=== PATIENT | female | born 1955 | race Caucasian/White ===

== ENCOUNTER → 2023-09-10 08:42 | Outpatient (REF) | payer MEDICARE, SELFPAY | LOC: MRI 3T 08:42 | PROVIDERS: ATTENDING PHYSICIAN Orthopaedic Surgery; FAMILY PHYSICIAN Family Medicine | DX: M25.552 Pain in left hip (principal) | CPT/HCPCS: 73721 ==

== ENCOUNTER → 2023-10-23 13:09 | Outpatient (REF) | payer MEDICARE, SELFPAY | LOC: RAD 13:09 | PROVIDERS: ATTENDING PHYSICIAN Family Medicine | DX: D72.819 Decreased white blood cell count, unspecified (principal); R59.0 Localized enlarged lymph nodes; R60.1 Generalized edema | CPT/HCPCS: 74177; Q9967 ==

== ENCOUNTER → 2023-11-05 10:16 | Outpatient (REF) | payer MEDICARE, SELFPAY | LOC: DHCBS MAIN 10:16 | PROVIDERS: ATTENDING PHYSICIAN Internal Medicine Cardiovascular Disease; FAMILY PHYSICIAN Family Medicine | DX: I48.0 Paroxysmal atrial fibrillation (principal) | CPT/HCPCS: 93306 ==

== ENCOUNTER → 2023-11-29 13:49 | Outpatient (REF) | payer MEDICARE, SELFPAY | LOC: RAD 13:49 | PROVIDERS: ATTENDING PHYSICIAN Family Medicine | DX: M85.89 Other specified disorders of bone density and structure, multiple sites (principal); Z13.820 Encounter for screening for osteoporosis | CPT/HCPCS: 77080 ==

== ENCOUNTER 2023-12-17 09:56 | Day surgery (SDC) | payer MEDICARE, SELFPAY | END 2023-12-17 12:07 | disposition home or self-care (01) | LOC: CATH 09:56 | PROVIDERS: ATTENDING PHYSICIAN Internal Medicine Cardiovascular Disease; FAMILY PHYSICIAN Family Medicine | DX: Z09 Encounter for follow-up examination after completed treatment for conditions other than malignant neoplasm (principal); I48.0 Paroxysmal atrial fibrillation; Z79.01 Long term (current) use of anticoagulants; R07.9 Chest pain, unspecified; I10 Essential (primary) hypertension; R94.31 Abnormal electrocardiogram [ECG] [EKG]; I34.0 Nonrheumatic mitral (valve) insufficiency | CPT/HCPCS: 33285; C1764 ==

== ENCOUNTER → 2024-02-27 15:05 | Outpatient (REF) | payer MEDICARE, SELFPAY | LOC: WDC 15:05 | PROVIDERS: ATTENDING PHYSICIAN Family Medicine | DX: Z12.31 Encounter for screening mammogram for malignant neoplasm of breast (principal) | CPT/HCPCS: 77063; 77067 ==

== ENCOUNTER → 2024-03-24 12:22 | Outpatient (REF) | payer MEDICARE, SELFPAY | LOC: RAD 12:22 | PROVIDERS: ATTENDING PHYSICIAN Family Medicine | DX: K76.9 Liver disease, unspecified (principal); R59.0 Localized enlarged lymph nodes | CPT/HCPCS: 74177; Q9967 ==

== ENCOUNTER → 2024-10-24 12:49 | Outpatient (REF) | payer MEDICARE, SELFPAY | LOC: RAD 12:49 | PROVIDERS: ATTENDING PHYSICIAN Family Medicine | DX: D18.03 Hemangioma of intra-abdominal structures (principal); R59.0 Localized enlarged lymph nodes | CPT/HCPCS: 74177; Q9967 ==

== ENCOUNTER 2025-01-29 07:51 | Day surgery (SDC) | payer MEDICARE, SELFPAY ==
[2025-01-19 08:16] VITALS: BMI 25.9
[2025-01-19 08:41] LABS: Hematocrit 39.4 % (37.0-47.0); Hemoglobin 13.7 g/dL (12.0-16.0); Mean Corp Hgb Conc. 34.8 g/dL (33.0-37.0); Mean Corpuscular Volume 90.4 fL (81.0-99.0); Nucleated Red Blood Cells % 0 %; Platelet Count 229 10^3/uL (130-400); Red Cell Dist. Width 12.7 % (11.5-14.5)
[2025-01-19 08:53] LABS: INR 2.14; PT 24.0 Sec (11.4-14.6)
[2025-01-19 09:02] LABS: ALT (SGPT) 21 U/L (0-35); AST (SGOT) 29 U/L (14-36); Albumin 4.4 g/dl (3.5-5.0); Alkaline Phosphatase 68 U/L (38-126); Blood Urea Nitrogen 13 mg/dl (7-17); Calcium 9.7 mg/dl (8.4-10.2); Carbon Dioxide 26 mmol/L (22-30); Chloride 103 mmol/L (98-107); Estimated Creatinine Clearance 65 ml/min; Glucose 97 mg/dl (70-99); Magnesium 2.1 mg/dl (1.6-2.3); Potassium 3.5 mmol/L (3.5-5.1); Sodium 137 mmol/L (135-145); Total Protein 6.9 g/dl (6.3-8.2); eGFR > 60.00
[2025-01-29] VITALS (17 sets, daily range): BP systolic 122–170; BP diastolic 80–111
--- NOTE | 2025-01-29 10:01 | ITS.CL.ABL ---
Ophthalmic Medical Technician - Ablation
Ablation
Procedure Report:
ELECTROPHYSIOLOGIC STUDY AND POSSIBLE ABLATION
DATE: January 29, 2025
Primary Care Provider: Dr. Arlyn Jacobo
INDICATION:
Symptomatic Atrial Fibrillation.
Paroxysmal
HISTORY: See H and P.
Symptomatic AF, poorly controlled with attempted medical therapy.
She has had recurrent atrial fibrillation despite 2 prior ablations. She was ablated using cryo balloon ablation in 2018 then radiofrequency ablation in 2022 targeting recurrence of atrial fibrillation.
HAS-BLED: 1
Age
CHADSVASc: 3
HTN
Age
F Gender
PRESENTING RHYTHM: SR
HISTORY: See H and P.
Symptomatic AF, poorly controlled with attempted medical therapy.
ANTIARRHYTHMIC DRUG: Flecainide 50 mg twice daily
ANTICOAGULATION: Rivaroxaban 20 mg daily
'TIME-OUT': called and confirmed.
SEDATION/ANESTHESIA: provided via the anesthesia department using general anesthesia.
PROCEDURE:
Ultrasound Guidance with real-time visualization of needle insertion and vessel patency performed by nh for femoral venous Vascular Access.
Under real-time US guidance, the needle was advanced with negative pressure into the vein. The needle was seen entering the vessel lumen with a good return of dark red flow, the syringe was removed, non-pulsatile, dark red blood low was noted and
the wire was passed without difficulty, then the needle was removed. US confirmed the wire was in the vein, not going into an artery,
Images were taken and saved for the patient's permanent record. Imaging findings typical femoral venous anatomy. Direct visualization of needle puncture into the femoral vein was observed and recorded.
A decapolar CS catheter was placed within the CS for mapping and pacing.
The intracardiac ultrasound catheter was positioned in the RA for continuous intracardiac ultrasound imaging.
Heparin bolus and infusion to target ACT at 300 -350 seconds was administered. Transseptal puncture was performed. This entailed advancing a sheath with dilator into the superior vena cava and withdrawing both (monitoring intracardiac ultrasound,
fluoroscopy and tip pressure) with the tip oriented toward the atrial septum. The fossa ovalis was engaged (indicated by sudden displacement of the sheath tip as well as tenting of the fossa seen on intracardiac ultrasound).
The [employer] transseptal system was used. Left atrial catheter position was confirmed by echocardiographic imaging and fluoroscopy followed by RF delivery using the Widespace system resulting in successful LA access with pressure monitoring
demonstrating LA pressure waveforms (LA mean pressure 7 mm Hg). The sheath was advanced over the dilator and positioned in the left atrium.
The Whitney Grid multipolar mapping catheter was initially positioned through the transseptal sheath for high density mapping.
Geometry and voltage mapping was performed using the Whitney multipolar grid catheter. Ensite-X was utilized for three-dimensional electroanatomical mapping.
A 3-D map was created using Ensite-X in Voxel mode. A 3-D reconstructed CT image was compared to the 3-D Navex map to assist in anatomic evaluation, mapping and ablation.
The [employer] PFA catheter and system was used for cardiac ablation. Catheter positioning was guided and confirmed using both I.C.E. and fluoroscopy.
Ablation strategy included PVI as well as mapping for extra PV contributors to atrial fibrillation which would also be targeted if present.
High density electroanatomical three-dimensional mapping demonstrated LSPV, LIPV, RSPV, RIPV.
There is reconnection at the left inferior pulmonary vein toward the posterior inferior quadrant
Delivery of pulsed electric field energy via the femoral pulse ablation system we isolated the left inferior pulmonary vein.
After accomplishing pulmonary venous isolation, mapping identified additional areas likely to be extra PV contributors to atrial fibrillation. These areas demonstrated patchy low voltage as well as complex fractionated electrograms. These areas can
be sites for the formation of rotors which can drive and maintain atrial fibrillation. These areas are known to be significant contributors to initiation and perpetuation of atrial fibrillation.
Additional energy applications/additional ablation sets targeted extra PV contributors to atrial fibrillation.
Targets for additional PFA ablation included:
LA posterior wall targeted with pulsed electric field energy isolating the posterior wall of the left atrium
After ablation of the posterior wall, additional targets were addressed:
LA inferior floor
These areas were ablated using pulsed electric field energy eliminating the extra PV contributors to atrial fibrillation.
Post ablation mapping finds entrance and exit block at each of the pulmonary veins (LSPV, LIPV, RSPV, RIPV), the LA posterior wall and at the additional line at the inferior/floor of the LA rendering the sites no longer able to contribute to atrial
fibrillation.
Programmed electrostimulation was then able to induce a slightly irregular atrial tachycardia cycle length between 310 and 340 ms. Tachycardia was sustained but at times would degenerate into atrial fibrillation requiring cardioversion.
Tachycardia was easily reinducible. At times cycle length varied, as fast as 280 ms but with the same activation sequence.
High density electroanatomical mapping for activation mapping as well as pacing for entrainment diagnosed a left atrial macro reentrant flutter utilizing an isthmus of slow conduction outside the right superior pulmonary vein anteriorly. Pulse
electric field energy using the femoral pulse ablation catheter in the flower position was used to target this cord where of tissue. Initial energy applications were performed at the antrum of the right superior pulmonary vein anteriorly. Program
electrical stimulation resulted in slower either sustained self terminating or nonsustained atrial tachycardia with the same activation sequence. Mapping suggested leak of electrical signal closer to the mitral valve had approximately a 10/11
o'clock position at AMY 30 degrees. The decision was then made to extend the ablation line from the right superior pulmonary vein down to the anterior mitral valve annulus. IV pressors were administered to get the systolic blood pressure above 150
mmHg. Then intravenous nitroglycerin at 200 mcg was administered. 1 minute later pulsed electric field energy was delivered closer to the mitral valve annulus. Once again with induction tachycardia could be induced albeit always nonsustained.
Mapping demonstrated a lack of a complete line of block with escape close to the mitral valve annulus. The decision was made to give additional energy closer to the mitral valve annulus to ensure complete line of block. Once again intravenous
pressures were administered followed by IV nitroglycerin and pulsed electric field energy was delivered at the mitral valve annulus. At no point was there any ST segment elevation or hemodynamic compromise. Mapping then demonstrated a full line of
electrical block. Now programmed electrical stimulation failed to induce any arrhythmias.
I.C.E. :
Pre-Ablation Post-Ablation
LVEF: 55% 55%
WMA: None none
Pericardial effusion: None none
COMPLICATIONS:
None
SUMMARY:
- Mapping and ablation to isolate the PVs resulting in electrical isolation of the pulmonary veins
- Additional AF ablation sets X 2 after PVI (LA posterior wall, Inf/floor of the LA posterior wall) resulting in elimination of the targeted extra PV contributors to atrial fibrillation.
- Mapping and ablation of second tachycardia (macro reentrant left atrial flutter)
- 3-D Electroanatomical Mapping
- Intracardiac Ultrasound
- Ultrasound guidance for vascular access
Post ablation, I discussed today's findings and results with the patient's , Daniel.
RECOMMENDATIONS:
- Observe in monitored bed.
- Maintain oral anticoagulation.
- Discontinue flecainide
- Office visit with Laila Lamas NP on May 21, 2025.
Copy to: Dr. Arlyn Jacobo
[2025-01-29 11:09] LABS: ACT-LR - POC 263 Seconds (116-155)
[2025-01-29 11:26] LABS: ACT-LR - POC 306 Seconds (116-155)
[2025-01-29 11:46] LABS: ACT-LR - POC 321 Seconds (116-155)
[2025-01-29 12:12] LABS: ACT-LR - POC 351 Seconds (116-155)
[2025-01-29 12:26] LABS: ACT-LR - POC 380 Seconds (116-155)
[2025-01-29] MEDS: ORETIC 25 MG PO (13:31)
[2025-01-29] MEDS: INDERAL LA 120 MG PO (13:31)
--- NOTE | 2025-01-29 16:24 | W.PN.UPDATE ---
Update Note
Progress Note Update
69 yo WF s/p PVI (same day). She denies cp, sob, had mild visual changes initially but improved with IVF ? anesthesia related, EKG SR 1d AVB, R fem site c/d/i no HT. She will resume Xarelto tonight then slowly move to am over the next few days. She
will stop flecainide and continue inderal. Activity restrictions reviewed. She will f/u Dr. Villa in 3 mo. She is for d/c home after 530p if groin stable.
== END 2025-01-29 17:22 | disposition home or self-care (01) ==
LOC: CATH 07:51
PROVIDERS: ATTENDING PHYSICIAN Internal Medicine Cardiovascular Disease; FAMILY PHYSICIAN Family Medicine
DX: I48.19 Other persistent atrial fibrillation (principal); Z79.01 Long term (current) use of anticoagulants; I10 Essential (primary) hypertension; I48.92 Unspecified atrial flutter; I49.8 Other specified cardiac arrhythmias; I49.1 Atrial premature depolarization; Z79.899 Other long term (current) drug therapy
CPT/HCPCS: 36415; 80053; 83735; 85025; 85347; 85610; 86850; 86900; 86901; 93005; 93655; 93656; 93657; C1730; C1732; C1733; C1766; C1769; C1892; C1894

== ENCOUNTER → 2025-02-28 13:22 | Outpatient (REF) | payer MEDICARE, SELFPAY | LOC: WDC 13:22 | PROVIDERS: ATTENDING PHYSICIAN Family Medicine | DX: Z12.31 Encounter for screening mammogram for malignant neoplasm of breast (principal) | CPT/HCPCS: 77063; 77067 ==

== ENCOUNTER 2025-06-02 08:12 | Inpatient (IN) | payer MEDICARE, SELFPAY ==
[2025-06-02 08:47] VITALS: BMI 26.5
[2025-06-02 08:50] VITALS: BP 131/71
--- NOTE | 2025-06-02 08:50 | W.PN.CARDCBS ---
Addendum entered and electronically signed by Adria Infante DO 06/02/25 11:09:
I saw and examined the patient.
The Babbitter's note was reviewed and I agree with the note.
Comment:
Plan:
Plan for Tikosyn after Flecainide washout. Reviewed with EP.
Pt preferred to stay for monitoring off Flecainide as she has symptomatic AFib hx
Cont Eliquis
Monitor QTc as per protocol.
Original Note:
Today's Communication / Plan
-
Labs pending
Plan for initiation of Tikosyn 500 mcg twice daily on 06/03/2025 after washout of flecainide
Continue anticoagulation with Eliquis 5 mg twice a day
Continue to monitor on telemetry
Continue amlodipine for hypertension
Impression / Plan
-
Please refer to full H&P from 05/28/2025 office visit
PCP: Arlyn Jacobo
Container Finisher: Adrián Matthews
Impression:
Admit for initiation of Tikosyn 06/02/2025
Symptomatic paroxysmal atrial fibrillation
A-fib ablation 09/2018
Redo PVI ablation 10/18/2022
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
Failure of flecainide with several pauses greater than 5 seconds leading to discontinuation of flecainide
Failure of sotalol
Chronic anticoagulation on Xarelto
Implantable Medtronic Linq monitor December 2023
Mitral regurgitation
History of pericarditis
History of toxoplasmosis
Hypertension
Macular degeneration
GERD/hiatal hernia
Migraine headaches
Echo 11/05/2023: 55 to 60% with no regional wall motion abnormality. Normal LV size wall thickness and systolic function. Moderate MR. Severely dilated left atrium. Mild TR with PAP 42 mmHg
Plan:
Patient is a 69-year-old female with longstanding history of symptomatic paroxysmal atrial fibrillation with recurrent atrial fibrillation and atrial tachycardia after having 3 previous ablations. She had previous failure to sotalol. Most recently
she has been on flecainide with reoccurrence of atrial fibrillation. She has also been found to have pauses greater than 5 seconds on loop recorder while on flecainide. Patient now being referred for initiation of Tikosyn.
-Last dose of flecainide 06/01/2025 in evening. Initiate Tikosyn 500 mg twice daily starting 06/03/2025 in a.m.
-EKG prior to initiation of Tikosyn 06/02/2025 sinus bradycardia at 55 bpm, QTc 441 ms
-Patient reports she has been compliant with taking Eliquis and has not missed or skipped any doses in the last 2 to 3 months
-Labs pending.
-Repeat BMP in a.m.
-Will continue on Inderal 80 mg. Dose may need to be discontinued upon initiation of Tikosyn pending heart rate
-Continue to monitor on telemetry
-Continue amlodipine 2.5 mg for hypertension
Progress Note - Container Finisher
Subjective
Date of Service: June 02, 2025
Patient seen and examined. Patient reports overall she is feeling well. She feels like she converted to sinus rhythm on 05/31/2025 and has maintained sinus rhythm since. She reports when she is in atrial fibrillation/atrial tachycardia she is
very symptomatic. She wishes to move forward with initiation of Tikosyn. She has remained on uninterrupted anticoagulation
Physical Exam
Physical Exam
GEN: No distress, awake, Ox3
HEENT: supple, anicteric, mmm
LUNGS: CTA, no wheezes/rales
CV: Reg, bradycardic S1/S2, 1/6 syst murmur, no rub or gallop
ABD: soft, BS+, NT/ND
EXT: No edema, no clubbing or cyanosis
NEURO: Gross non-focal
SKIN: No rash, warm, dry, pink
[2025-06-02 09:00] VITALS: BMI 26.5
[2025-06-02 09:35] VITALS: BP 136/89
[2025-06-02] MEDS: INDERAL LA 80 MG PO (09:36)
[2025-06-02 10:05] LABS: Hematocrit 40.2 % (37.0-47.0); Hemoglobin 13.4 g/dL (12.0-16.0); Mean Corp Hgb Conc. 33.3 g/dL (33.0-37.0); Mean Corpuscular Volume 92.2 fL (81.0-99.0); Platelet Count 209 10^3/uL (130-400); Red Cell Dist. Width 12.8 % (11.5-14.5)
[2025-06-02 10:19] LABS: ALT (SGPT) 26 U/L (0-35); AST (SGOT) 43 U/L (14-36); Albumin 4.1 g/dl (3.5-5.0); Alkaline Phosphatase 70 U/L (38-126); Blood Urea Nitrogen 20 mg/dl (7-17); Calcium 9.5 mg/dl (8.4-10.2); Carbon Dioxide 30 mmol/L (22-30); Chloride 102 mmol/L (98-107); Estimated Creatinine Clearance 67 ml/min; Glucose 87 mg/dl (70-99); Magnesium 2.2 mg/dl (1.6-2.3); Potassium 3.9 mmol/L (3.5-5.1); Sodium 136 mmol/L (135-145); Total Protein 6.3 g/dl (6.3-8.2); eGFR > 60.00
[2025-06-02 11:21] VITALS: BP 150/81
--- NOTE | 2025-06-02 11:21 | CM ---
Chart reviewed. Patient is independent of ADLS, lives with her in a 2 S[address], 1st floor set up, 2 AALIYAH, 0 DME. Patient is being started on Dofetilide. CM to assess cost and availability. Patient will need to go home on a 3 day supply. CM
to follow
--- NOTE | 2025-06-02 12:04 | CM ---
Pricing on Dofetilide through the patient's [facility] [employer] is covered at $14.40. CM to follow up
[2025-06-02 14:56] VITALS: BP 146/86
[2025-06-02 19:40] VITALS: BP 146/95
[2025-06-02] MEDS: REFRESH EYE DROPS (PF) 1 DROPS OPHTH (20:30)
[2025-06-02 22:18] VITALS: BP 143/88
--- NOTE | 2025-06-02 23:24 | PTCARENOTE ---
Received pt at change of shift resting in bed. SB on tele, HR in the 50's. Afib booklet and education given to pt. Updated pt on plan of care. Encouraged pt to call RN w/ any questions/concerns. Call montemayor within reach.
[2025-06-03] VITALS (8 sets, daily range): BP systolic 125–141; BP diastolic 85–99
--- NOTE | 2025-06-03 02:59 | DOWNTIME ---
There was a [employer] Client [employer] Downtime on 06/03/2025 from 0100 to 06/03/2025 at 0255. Downtime documentation of patient's care, including medication administrations, has been reconciled in the electronic record per guidelines. Refer to the
patient's paper chart under the miscellaneous tab to see printed paper medication records and downtime forms.
[2025-06-03 04:17] LABS: Blood Urea Nitrogen 16 mg/dl (7-17); Calcium 9.1 mg/dl (8.4-10.2); Carbon Dioxide 28 mmol/L (22-30); Chloride 105 mmol/L (98-107); Estimated Creatinine Clearance 67 ml/min; Glucose 82 mg/dl (70-99); Potassium 3.8 mmol/L (3.5-5.1); Sodium 136 mmol/L (135-145); eGFR > 60.00
[2025-06-03] MEDS: REFRESH EYE DROPS (PF) 1 DROPS OPHTH ×2 (08:39→20:03)
[2025-06-03] MEDS: OSCAL 500 + D 500 MG PO (08:39)
[2025-06-03] MEDS: INDERAL LA 80 MG PO (08:39)
[2025-06-03] MEDS: THERAGRAN 1 TABLET PO (08:40)
[2025-06-03] MEDS: XARELTO 20 MG PO (08:40)
--- NOTE | 2025-06-03 09:19 | W.CARD.TIKOS ---
Initiate Tikosyn
-
I verify that the patient has not taken any verapamil (Isoptin/Calan), ketoconazole (Nizoral), cimetidine (Tagamet), trimethoprim (Trimpex), trimethoprim/sulfamethoxazole (Bactrim), megesterol (Megace), prochlorperazine (Compazine),
hydrochlorothiazide (HCTZ), dolutegravir (Tivicay) or any Class I or Class III anti-arrhythmic within the last three days
AND
I verify that the patient has not taken amiodarone within the last THREE months, or that the patient's amiodarone plasma concentration is <0.3 mcg/mL.
Creatinine 0.8 mg/dL (0.6-1.0) 06/03/25 03:09
Estimated Creat Clear 67 ml/min 06/03/25 03:09
CrCl 83
Does patient have a Ventricular Conduction Abnormality: No
I have assessed the baseline QTc interval (using QT for heart rate less than 60 bpm) and deemed the patient is appropriate for Dofetilide therapy. I understand that Tikosyn is contraindicated if the QTc is >440msec (500msec in patients with
ventricular conduction abnormalities).
Baseline QTc (in msec): 441
QTc interval is greater than 440msec without conduction abnormality OR greater than 500msec with a conduction abnormality, but acceptable to proceed per Cardiology attending. QTc 441 ms instead of 440
Ordering Physician: Adrián Matthews
--- NOTE | 2025-06-03 09:33 | W.PN.CARDCBS ---
Today's Communication / Plan
-
Start Tikosyn and monitor QT interval
Remains in sinus rhythm
Impression / Plan
-
Please refer to full H&P from 05/28/2025 office visit
PCP: Arlyn Jacobo
Research Nutritionist: Adrián Matthews
Impression:
Admit for initiation of Tikosyn 06/02/2025
Symptomatic paroxysmal atrial fibrillation
A-fib ablation 09/2018
Redo PVI ablation 10/18/2022
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
Failure of flecainide with several pauses greater than 5 seconds leading to discontinuation of flecainide
Failure of sotalol
Chronic anticoagulation on Xarelto
Implantable Medtronic Linq monitor December 2023
Mitral regurgitation
History of pericarditis
History of toxoplasmosis
Hypertension
Macular degeneration
GERD/hiatal hernia
Migraine headaches
Echo 11/05/2023: 55 to 60% with no regional wall motion abnormality. Normal LV size wall thickness and systolic function. Moderate MR. Severely dilated left atrium. Mild TR with PAP 42 mmHg
Plan:
She remains in sinus rhythm
Plan is to start Tikosyn today with 5 doses given which will end on June 05 am
HCTZ has been stopped given interaction with Tikosyn and Norvasc has been added with stable blood pressure
PREADMIT DATA
Patient is a 69-year-old female with longstanding history of symptomatic paroxysmal atrial fibrillation with recurrent atrial fibrillation and atrial tachycardia after having 3 previous ablations. She had previous failure to sotalol. Most recently
she has been on flecainide with reoccurrence of atrial fibrillation. She has also been found to have pauses greater than 5 seconds on loop recorder while on flecainide. Patient now being referred for initiation of Tikosyn.
Progress Note - Research Nutritionist
Subjective
Date of Service: June 03, 2025
No complaints
Objective
Labs:
06/02/25 09:31
06/03/25 03:09
Labs
Hgb 13.4 g/dL (12.0-16.0) 06/02/25 09:31
Hct 40.2 % (37.0-47.0) 06/02/25 09:31
Plt Count 209 10^3/uL (130-400) 06/02/25 09:31
Sodium 136 mmol/L (135-145) 06/03/25 03:09
Potassium 3.8 mmol/L (3.5-5.1) 06/03/25 03:09
BUN 16 mg/dl (7-17) 06/03/25 03:09
Creatinine 0.8 mg/dL (0.6-1.0) 06/03/25 03:09
Glucose 82 mg/dl (70-99) 06/03/25 03:09
Vital Signs and I&O:
Vital Signs
Temp Pulse Resp BP Pulse Ox
97.8 F 57 16 126/85 98
06/03/25 08:06 06/03/25 08:39 06/03/25 08:06 06/03/25 08:39 06/03/25 08:06
Vital Signs
Temp Pulse Resp BP Pulse Ox
97.8 F 57 16 126/85 98
06/03/25 08:06 06/03/25 08:39 06/03/25 08:06 06/03/25 08:39 06/03/25 08:06
Intake & Output
06/01/25 06/02/25 06/03/25 06/04/25
06:59 06:59 06:59 06:59
Intake Total 2420 / 2420
Balance 2420 / 2420
Physical Exam
Physical Exam
General: Well developed, well nourished in NAD.
Neck: Supple, no JVD, HJR, carotids +2 B/L, no bruits bilaterally.
Heart: Non displaced PMI, RRR, no murmurs, No S3, S4, no rubs.
Lungs: Clear to auscultation bilaterally, no wheeze, rhonchi, rubs bilaterally,
normal expiratory phase.
Extremities: No clubbing, cyanosis or edema bilaterally.
Neuro: Grossly nonfocal, awake, alert and oriented x3.
[2025-06-03] MEDS: NORVASC 2.5 MG PO (10:31)
[2025-06-03] MEDS: TIKOSYN 500 MCG PO ×2 (10:33→21:02)
--- NOTE | 2025-06-03 11:19 | CM ---
Chart reviewed. Patient is independent of ADLS, lives with her in a 2 STH, 1-2 AALIYAH, 0 DME. Patient will need follow up with pharmacy at discharge to confirm availability Dofetilide and dosage. Patient will also need 3 day supply at
discharge. CM to follow
--- NOTE | 2025-06-03 19:02 | PTCARENOTE ---
~[id number]: Handoff report received from nightshift RN. Pt Aox4, SB/NSR 50s-60s on tele, SBP 120s, RA satting 99%. Pt does not c/o pain at this time. Independent in room. Tikosyn dose #1 given per order, education provided. All needs met at this
time, call montemayor within reach.
~[id number]: EKG obtained post tikosyn dose per protocol. Patient idependent in the room. All needs met, call montemayor within reach.
~[id number]: No change from previous assessment. VSS. All needs met at this time, call montemayor within reach.
--- NOTE | 2025-06-03 23:22 | PTCARENOTE ---
Received patient at change of shift. SB on the monitor, HR in the 50s. Tikosyn administered, EKG obtained as per protocol. No complaints from pt at this time, call montemayor within reach.
[2025-06-04 03:07] VITALS: BP 129/82
[2025-06-04 04:05] LABS: Blood Urea Nitrogen 14 mg/dl (7-17); Calcium 9.5 mg/dl (8.4-10.2); Carbon Dioxide 25 mmol/L (22-30); Chloride 105 mmol/L (98-107); Estimated Creatinine Clearance 77 ml/min; Glucose 87 mg/dl (70-99); Potassium 3.5 mmol/L (3.5-5.1); Sodium 134 mmol/L (135-145); eGFR > 60.00
[2025-06-04 07:44] VITALS: BP 134/85
[2025-06-04] MEDS: INDERAL LA 80 MG PO (08:09)
[2025-06-04] MEDS: OSCAL 500 + D 500 MG PO (08:09)
[2025-06-04] MEDS: TIKOSYN 500 MCG PO (08:09)
[2025-06-04] MEDS: REFRESH EYE DROPS (PF) 1 DROPS OPHTH ×2 (08:10→19:51)
[2025-06-04] MEDS: XARELTO 20 MG PO (08:10)
[2025-06-04] MEDS: NORVASC 2.5 MG PO (08:10)
[2025-06-04] MEDS: THERAGRAN 1 TABLET PO (08:10)
--- NOTE | 2025-06-04 08:18 | W.PN.CARDCBS ---
Addendum entered and electronically signed by Josee Matthews MD 06/04/25 11:38:
I saw and examined the patient.
The Manager Product Support's note was reviewed and I agree with the note.
Comment: No complaints overnight. Exam by me stable. environmental monitoring technician stable.
On dofetilide load. QT interval mildly increased on current EKG compared to prior EKG. Will confer with electrophysiology to see if patient should be dose reduced.
Potassium has been supplemented.
Continue to follow electrolytes.
Continue to follow EKGs per dofetilide protocol.
Continue to follow blood pressure. Currently stable on treatment.
Original Note:
Today's Communication / Plan
-
QTc prolonged to 510 ms following 3rd dose of Tikosyn 500 mcg every 12 hours, will check with EP about possibly reducing dose to 250 mcg
Patient noted to be hypokalemic and was supplemented with KCl 40 mEq x 1 plus rechecking BMP and magnesium level in the a.m., all ordered by me
Impression / Plan
-
Please refer to full H&P from 05/28/2025 office visit
PCP: Arlyn Jacobo
Melt House Supervisor: Adrián Matthews
Impression:
Admit for initiation of Tikosyn 06/02/2025
Symptomatic paroxysmal atrial fibrillation
A-fib ablation 09/2018
Redo PVI ablation 10/18/2022
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
Failure of flecainide with several pauses greater than 5 seconds leading to discontinuation of flecainide
Failure of sotalol
Chronic anticoagulation on Xarelto
Implantable Medtronic Linq monitor December 2023
Mitral regurgitation
History of pericarditis
History of toxoplasmosis
Hypertension
Macular degeneration
GERD/hiatal hernia
Migraine headaches
Echo 11/05/2023: 55 to 60% with no regional wall motion abnormality. Normal LV size wall thickness and systolic function. Moderate MR. Severely dilated left atrium. Mild TR with PAP 42 mmHg
Plan:
-Patient was directly admitted for Tikosyn loading 06/02/2025. Patient was in sinus bradycardia on admission.
-Patient was still taking her usual dose of flecainide on admission, first missed dose was the morning of 06/02/2025. Following 24-hour washout patient was started on Tikosyn 500 mcg every 12 hours 06/03/2025 AM based on CrCl of 83.
-QTc was stable at 494 ms following 2nd dose of Tikosyn 500 mcg on Sunday night. Patient was given 3rd dose of Tikosyn 500 mcg morning and QTc increased to 510 ms. Will check with EP about possibly reducing dose to 250 mcg every 12
hours
-Patient noted to be hypokalemic with a potassium of 3.5 on my review of labs 06/04/2025. Potassium supplemented with KCl 40 mEq x 1 now, orders placed by me. Recheck potassium plus a magnesium level in the AM. Magnesium level was 2.2 on
06/02/2025.
-Outpatient dose of HCTZ stopped 05/28/2025
-Patient is new to amlodipine 2.5 mg daily this admission and patient is normotensive most of the time following that addition
HPI: Patient is a 69-year-old female with longstanding history of symptomatic paroxysmal atrial fibrillation with recurrent atrial fibrillation and atrial tachycardia after having 3 previous ablations. She had previous failure to sotalol. Most
recently she has been on flecainide with reoccurrence of atrial fibrillation. She has also been found to have pauses greater than 5 seconds on loop recorder while on flecainide. Patient now being referred for initiation of Tikosyn.
Progress Note - Melt House Supervisor
Subjective
Date of Service: June 04, 2025
Patient feels well, denies palpitations
Objective
Labs:
06/02/25 09:31
06/04/25 03:14
Labs
Hgb 13.4 g/dL (12.0-16.0) 06/02/25 09:31
Hct 40.2 % (37.0-47.0) 06/02/25 09:31
Plt Count 209 10^3/uL (130-400) 06/02/25 09:31
Sodium 134 mmol/L (135-145) L 06/04/25 03:14
Potassium 3.5 mmol/L (3.5-5.1) 06/04/25 03:14
BUN 14 mg/dl (7-17) 06/04/25 03:14
Creatinine 0.7 mg/dL (0.6-1.0) 06/04/25 03:14
Glucose 87 mg/dl (70-99) 06/04/25 03:14
Vital Signs and I&O:
Vital Signs
Temp Pulse Resp BP Pulse Ox
97.8 F 49 20 129/82 98
06/04/25 07:45 06/04/25 06:00 06/04/25 07:45 06/04/25 03:07 06/04/25 07:45
Vital Signs
Temp Pulse Resp BP Pulse Ox
97.8 F 49 20 129/82 98
06/04/25 07:45 06/04/25 06:00 06/04/25 07:45 06/04/25 03:07 06/04/25 07:45
Intake & Output
06/02/25 06/03/25 06/04/25 06/05/25
06:59 06:59 06:59 06:59
Intake Total 2420 / 2420 960 / 960
Balance 2420 / 2420 960 / 960
Physical Exam
Physical Exam
GEN: NAD, AAO x 3
LUNGS: RA. No audible wheeze
CV: Sinus bradycardia on telemetry.
[2025-06-04] MEDS: KCL 40 MEQ PO (09:06)
[2025-06-04 11:17] VITALS: BP 126/83
--- NOTE | 2025-06-04 11:31 | CM ---
Chart reviewed. Patent is independent of ADLS, lives with her in a 2 STH, 1st floor set up, 1-2 AALIYAH, 0 DME. Patient will need a 3 day supply of Dofetilide and confirmation of availability at discharge. SHAKIR harrison
[2025-06-04 15:12] VITALS: BP 130/85
--- NOTE | 2025-06-04 18:42 | PTCARENOTE ---
Pt received in bed @ 0700. AAOx3. Denying pain. Pt ambulated in room without difficulty. HR observed 40s - 70s. EKG obtained after Tikosyn resulting QTc > 500. Peggy Can NP, notified. New order to decrease Tikosyn dose to 250mcg @ 20:00.
[2025-06-04 18:47] LABS: Hepatitis C Antibody Negative (Negative)
[2025-06-04 18:53] VITALS: BP 130/77
[2025-06-04] MEDS: TIKOSYN 250 MCG PO (19:51)
[2025-06-04 22:01] VITALS: BP 140/87
--- NOTE | 2025-06-05 01:53 | PTCARENOTE ---
Received pt @ change of shift. AAOx3, VSS-- SB on monitor. Denies any pain. Ambulating the room Discussed next Tikosyn dose and EKG. Pt verbalizes understanding. Call montemayor within reach.
[2025-06-05 03:39] VITALS: BP 113/79
[2025-06-05 04:27] LABS: Blood Urea Nitrogen 11 mg/dl (7-17); Calcium 9.6 mg/dl (8.4-10.2); Carbon Dioxide 28 mmol/L (22-30); Chloride 105 mmol/L (98-107); Estimated Creatinine Clearance 67 ml/min; Glucose 88 mg/dl (70-99); Magnesium 2.2 mg/dl (1.6-2.3); Potassium 4.0 mmol/L (3.5-5.1); Sodium 137 mmol/L (135-145); eGFR > 60.00
[2025-06-05 06:42] VITALS: BP 131/81
--- NOTE | 2025-06-05 08:25 | W.PN.CARDCBS ---
Addendum entered and electronically signed by Josee Matthews MD 06/05/25 12:57:
I saw and examined the patient.
The Package Handler's note was reviewed and I agree with the note.
Comment: Exam is stable. No symptoms noted. Telemetry stable.
Paroxysmal atrial fibrillation With long history as noted.
Chronic anticoagulation.
Patient was admitted for dofetilide load. Dose was decreased during hospital stay.
EKGs with stable QT interval
Telemetry and exam stable
Continue dofetilide 250 mcg twice daily
Continue to follow blood pressure as an outpatient.
Patient stable for discharge.
Original Note:
Today's Communication / Plan
-
Continue Tikosyn 250 mcg Q12H. For 5th dose this AM.
Follow QTc on EKG
If QTc stable, plan is for discharge later today
Follow up w/ repeat BMP next week to reassess K
Cardiology follow up arranged
Impression / Plan
-
Please refer to full H&P from 05/28/2025 office visit
PCP: Arlyn Jacobo
Medication Tech: Adrián Matthews
Impression:
Admit for initiation of Tikosyn 06/02/2025
Symptomatic paroxysmal atrial fibrillation
A-fib ablation 09/2018
Redo PVI ablation 10/18/2022
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
Failure of flecainide with several pauses greater than 5 seconds leading to discontinuation of flecainide
Failure of sotalol
Chronic anticoagulation on Xarelto
Implantable [employer] Linq monitor December 2023
Mitral regurgitation
History of pericarditis
History of toxoplasmosis
Hypertension
Macular degeneration
GERD/hiatal hernia
Migraine headaches
Echo 11/05/2023: 55 to 60% with no regional wall motion abnormality. Normal LV size wall thickness and systolic function. Moderate MR. Severely dilated left atrium. Mild TR with PAP 42 mmHg
Plan:
-Patient was directly admitted for Tikosyn loading 06/02/2025. Patient was still taking usual dose of flecainide on admission and first missed dose was 06/02/2025 AM.
-Following 24 hour washout of flecainide, patient was started on Tikosyn 500 mcg Q12H 06/03/2025 AM.
-QTc prolonged to 510ms after 3rd dose of Tikosyn, so dose reduced to 250 mcg Q12H starting in PM 06/04/2025.
-QTc improved to 477ms in PM 06/04. For 5th dose of Tikosyn this AM 06/05. Await AM EKG to reassess QTc.
-If QTc stable, will plan to continue on current dose of Tikosyn 250 mcg Q12H.
-Remains in sinus rhythm on review of telemetry.
-Continues on anticoagulation with Xarelto 20mg daily.
-OP HCTZ stopped 05/28/2025. BP stable with addition of amlodipine, new this admission.
-K had dropped to 3.5 06/04/2025 and given a 1x dose of KCL 40 mEq. K improved to 4.0 in AM 06/05. Mag 2.2.
-Will provide labslip to recheck K as OP next week.
-For likely discharge later today after 5th dose of Tikosyn if QTc stable.
-Cardiology follow up arranged.
HPI: Patient is a 69-year-old female with longstanding history of symptomatic paroxysmal atrial fibrillation with recurrent atrial fibrillation and atrial tachycardia after having 3 previous ablations. She had previous failure to sotalol. Most
recently she has been on flecainide with reoccurrence of atrial fibrillation. She has also been found to have pauses greater than 5 seconds on loop recorder while on flecainide. Patient now being referred for initiation of Tikosyn.
Progress Note - Medication Tech
Subjective
Date of Service: June 05, 2025
Feeling great this AM. No complaints
Objective
Labs:
06/02/25 09:31
06/05/25 03:48
Labs
Hgb 13.4 g/dL (12.0-16.0) 06/02/25 09:31
Hct 40.2 % (37.0-47.0) 06/02/25 09:31
Plt Count 209 10^3/uL (130-400) 06/02/25 09:31
Sodium 137 mmol/L (135-145) 06/05/25 03:48
Potassium 4.0 mmol/L (3.5-5.1) 06/05/25 03:48
BUN 11 mg/dl (7-17) 06/05/25 03:48
Creatinine 0.8 mg/dL (0.6-1.0) 06/05/25 03:48
Glucose 88 mg/dl (70-99) 06/05/25 03:48
Vital Signs and I&O:
Vital Signs
Temp Pulse Resp BP Pulse Ox
98.4 F 49 20 113/79 99
06/05/25 06:42 06/05/25 06:00 06/05/25 06:42 06/05/25 03:39 06/05/25 06:42
Vital Signs
Temp Pulse Resp BP Pulse Ox
98.4 F 49 20 113/79 99
06/05/25 06:42 06/05/25 06:00 06/05/25 06:42 06/05/25 03:39 06/05/25 06:42
Intake & Output
06/03/25 06/04/25 06/05/25 06/06/25
06:59 06:59 06:59 06:59
Intake Total 2420 / 2420 960 / 960
Balance 2420 / 2420 960 / 960
Physical Exam
Physical Exam
GEN: No distress, awake, alert, oriented x3
HEENT: supple, anicteric, mmm
LUNGS: CTA b/l, no wheezes/rales
CV: Reg, S1/S2, no murmur
EXT: No clubbing, cyanosis, or edema
NEURO: Gross non-focal
SKIN: Warm, dry, no rash
[2025-06-05] MEDS: NORVASC 2.5 MG PO (08:51)
[2025-06-05] MEDS: INDERAL LA 80 MG PO (08:51)
[2025-06-05] MEDS: THERAGRAN 1 TABLET PO (08:51)
[2025-06-05] MEDS: REFRESH EYE DROPS (PF) 1 DROPS OPHTH (08:52)
[2025-06-05] MEDS: XARELTO 20 MG PO (08:52)
[2025-06-05] MEDS: OSCAL 500 + D 500 MG PO (08:52)
[2025-06-05] MEDS: TIKOSYN 250 MCG PO (08:52)
[2025-06-05 11:00] VITALS: BP 129/86
--- NOTE | 2025-06-05 11:05 | CM ---
Chart reviewed. I called patient's [facility] and Dofetilide is not in stock, but if ordered today will be there on Sunday. Patient to go home with a 3 day supply from our pharmacy. Nursing and PA, Kiesha Jennings, notified. Patient is
independent of ADLS, lives with her in a 2 STH, 1st floor set up, 1-2 [facility], 0 DME. Plan is for the patient to return home. CM to follow
--- NOTE | 2025-06-05 12:11 | W.DS.TRANS ---
DC Summary - Chief Design Drafter
-
Discharge Instructions:
Sleep Apnea Risk Low
Discharge Diagnosis/Procedures Tikosyn load
Diet 2 Gram Sodium,Low Cholesterol
Activity As tolerated
Driving Restrictions As prior to admission
Bathing Restrictions OK to Shower
Blood Work BMP next week
Instructions:
Stand-Alone Forms:
Changes to Home Medications: Yes
Discharge Medications:
DC Medications w/original date entered in [employer]
turmeric root extract 150 mg-bartolo root extract 25 mg chewable tablet 1 tab PO DAILY Supplement ##0 10/07/18
rivaroxaban 20 mg tablet (Xarelto) 20 mg PO DAILY Blood Clot Prevention/Tx 11/25/18
inulin 2 gram chewable tablet 8 g PO DAILY Constipation ##0 01/13/25
Lactobac no.2-Bifidobac no.1-S. thermo 112.5 billion cell capsule (Visbiome) 1 cap PO DAILY Supplement 06/02/25
calcium carbonate 500 mg PO DAILY Supplement 06/02/25
carboxymethylcellulose sodium 0.25 % eye drops in a dropperette (TheraTears) 1 drp BOTH EYES TID Eye Condition 06/02/25
propranolol 80 mg capsule,extended release 24 hr 80 mg PO DAILY Blood Pressure 06/02/25
therapeutic multivitamin 1 tab PO DAILY Supplement 06/02/25
amlodipine 2.5 mg tablet (Norvasc) 2.5 mg PO DAILY Heart Disease/Condition #30 tabs 06/05/25
dofetilide 250 mcg capsule 250 mcg PO Q12H #60 caps 06/05/25
frovatriptan 2.5 mg tablet 2.5 mg PO DAILYPRN HEADACHES #1 tab 06/05/25
Home Medication Changes
Flecainide stopped
amlodipine started
Tikosyn started
Pending Results: No
--- NOTE | 2025-06-05 12:53 | PTCARENOTE ---
~[id number]: Handoff report received from nightshift RN. Pt AOx4, SB/NSR 50-60s on tele, SBP 130s, RA satting 99%. Pt does not c/o pain at this time. Scheduled tikosyn dose given, EKG ordered per protocol. Skin intact. Pt independent in room. All
needs met at this time, call montemayor within reach.
~[id number]: EKG obtained, QTC 476. Cardiology made aware, also request script for tikosyn to be sent to [facility] pharmacy so have doses to go home with until patient can picker and packer doses from her pharmacy on Sunday. Received script and sent to pharmacy to
be filled. Q2turn completed. Family at bedside. Pt on 3L NC satting 96%. All needs met at this time, call montemayor within reach.
~[id number]: DC orders in. Tele pack and PIV removed. DC orders reviewd with patient and tikosyn doses and script for repeat bloodwork sent home with patient. VSS, patient DC'd in stable condition.
== END 2025-06-05 13:00 | disposition home or self-care (01) | DRG 310 ==
LOC: IVU 08:12
PROVIDERS: Physician Assistant Medical; ADMITTING PHYSICIAN Internal Medicine Cardiovascular Disease; FAMILY PHYSICIAN Family Medicine
DX: I48.0 Paroxysmal atrial fibrillation (principal); I10 Essential (primary) hypertension; I47.19 Other supraventricular tachycardia; K21.9 Gastro-esophageal reflux disease without esophagitis; H35.30 Unspecified macular degeneration; G43.909 Migraine, unspecified, not intractable, without status migrainosus; I34.0 Nonrheumatic mitral (valve) insufficiency; E87.6 Hypokalemia; Z79.01 Long term (current) use of anticoagulants; Z79.899 Other long term (current) drug therapy
CPT/HCPCS: 80048; 80053; 83735; 85027; 86803; 93005

== ENCOUNTER → 2025-07-10 12:00 | Outpatient (REF) | payer MEDICARE, SELFPAY | LOC: DHSLP 12:00 | PROVIDERS: ATTENDING PHYSICIAN Internal Medicine Cardiovascular Disease; FAMILY PHYSICIAN Family Medicine | DX: G47.30 Sleep apnea, unspecified (principal); R06.83 Snoring | CPT/HCPCS: 95800 ==